=== PATIENT | male | born 1970 | race Hispanic/Latino ===

== ENCOUNTER 2017-09-21 15:35 | Emergency (ER) | payer BC ==
[2017-09-21 16:54] LABS: Absolute Lymphocytes (CBC) 3.5 K/uL (0.7-4.9); Absolute Monocytes 0.9 K/uL (0.1-1.3); Absolute Neutrophil 4.4 K/uL (1.8-8.0); Basophils % 0.7 % (0-1.3); Eosinophils % 2.9 % (0-4.4); Hematocrit 42.1 % (39.6-49.0); Lymphocytes % 38.5 % (15.3-44.8); MCH 25.7 pg (27.0-35.0); MCV 77.6 fL (80-100); MPV 9.2 fL (7.6-11.3); Monocytes % 10.3 % (3.3-12.3); RBC Red Blood Cell Count 5.42 M/uL (4.33-5.43)
[2017-09-21 17:05] LABS: Albumin 4.1 g/dL (3.2-5.5); Bilirubin Direct 0.2 mg/dL (0-0.2); Bilirubin Total 0.5 mg/dL (0.3-1.2); Protein, Total 7.9 g/dL (6.0-8.3)
[2017-09-21] MEDS ORDERED: NA CHLORIDE 0.9% 1,000 ML ONE (17:08)
[2017-09-21] MEDS ORDERED: MORPHINE 4 MG/ML SYR ONE (17:09)
[2017-09-21] MEDS ORDERED: ONDANSETRON 4 MG/2 ML VIAL ONE (17:09)
[2017-09-21 17:15] LABS: Potassium 4.1 mEq/L (3.6-5.0)
--- NOTE | 2017-09-21 17:42 | RAD REPORT ---
EXAM DESCRIPTION: CT - Abdomen Pelvis W Contrast - 09/21/2017 5:27 pm CLINICAL HISTORY: Abdominal pain left-sided pain COMPARISON: none. TECHNIQUE: Computed axial tomography of the abdomen pelvis was obtained. 100 cc Isovue-300 was admin istered intravenously. Oral contrast was not requested which limits evaluation of bowel. All CT scans are performed using dose optimization technique as appropriate and may include automated exposure control or mA/KV adjustment according to patient size. FINDINGS: The liver has a diminished attenuation consistent with fatty infiltration. Spleen, pancreas, adrenal and kidneys appear unremarkable. Diverticula stem from the colon without evidence of diverticulitis. The appendix is normal. A right inguinal hernia contains fat. A tiny umbilical hernia seen IMPRESSION: Right inguinal hernia containing fat
[2017-09-21 17:44] LABS: Urine Blood NEGATIVE (NEG); Urine Glucose NEGATIVE (NEG); Urine Protein NEGATIVE (NEG); Urine Specific Gravity 1.015 (1.005-1.030); Urine pH 6.5 (5.0-7.0)
[2017-09-21 17:51] LABS: Urine Bacteria NONE SEEN /HPF (NONE SEEN); Urine Culture Reflex Order REFLEXED; Urine RBC <5 /HPF (NONE SEEN); Urine Trichomonas PRESENT (NONE SEEN)
--- NOTE | 2017-09-21 18:30 | EDPHYS ---
Physician Documentation [facility] Name: Nael Perez Age: 46 yrs Sex: Male : 1970 Arrival Date: 09/21/2017 Time: 15:44 Bed 25 Private MD: ED Physician Orlin Dougherty HPI: 09/21 17:13 This 46 yrs old Male presents to ER via Ambulatory with complaints of kb Abdominal Pain. 17:13 The patient presents with abdominal pain left lateral abd. Onset: The symptoms/episode kb began/occurred this morning. The symptoms do not radiate. Associated signs and symptoms: none. The symptoms are described as constant. Modifying factors: The symptoms are alleviated by nothing, the symptoms are aggravated by pressure. Severity of pain: At its worst the pain was moderate in the emergency department the pain is unchanged. The patient has not experienced similar symptoms in the past. The patient has not recently seen a physician. Historical: - Allergies: 16:01 PENICILLINS; ch - Home Meds: 16:01 None [Active]; ch - PMHx: 16:01 None; ch - PSHx: 16:01 None; ch - Immunization history:: Adult Immunizations up to date. - Social history:: Smoking status: Patient/guardian denies using tobacco. ROS: 17:17 Constitutional: Negative for fever, chills, and weight loss, Cardiovascular: Negative kb for chest pain, palpitations, and edema, Respiratory: Negative for shortness of breath, cough, wheezing, and pleuritic chest pain, Back: Negative for injury and pain, : Negative for injury, bleeding, discharge, and swelling, MS/Extremity: Negative for injury and deformity, Skin: Negative for injury, rash, and discoloration, Neuro: Negative for headache, weakness, numbness, tingling, and seizure. 17:17 Abdomen/GI: Positive for abdominal pain, Negative for nausea, vomiting, and diarrhea, constipation, abdominal cramps, abdominal distension, anorexia. Exam: 17:17 Constitutional: This is a well developed, well nourished patient who is awake, alert, kb and in no acute distress. Head/Face: Normocephalic, atraumatic. Chest/axilla: Normal chest wall appearance and motion. Nontender with no deformity. No lesions are appreciated. Cardiovascular: Regular rate and rhythm with a normal S1 and S2. No gallops, murmurs, or rubs. Normal PMI, no JVD. No pulse deficits. Respiratory: Lungs have equal breath sounds bilaterally, clear to auscultation and percussion. No rales, rhonchi or wheezes noted. No increased work of breathing, no retractions or nasal flaring. Back: No spinal tenderness. No costovertebral tenderness. Full range of motion. Skin: Warm, dry with normal turgor. Normal color with no rashes, no lesions, and no evidence of cellulitis. MS/ Extremity: Pulses equal, no cyanosis. Neurovascular intact. Full, normal range of motion. Neuro: Awake and alert, GCS 15, oriented to person, place, time, and situation. Cranial nerves II-XII grossly intact. Motor strength 5/5 in all extremities. Sensory grossly intact. Cerebellar exam normal. Normal gait. 17:17 Abdomen/GI: Inspection: abdomen appears normal, Bowel sounds: normal, in all quadrants, Palpation: moderate abdominal tenderness, in the anterior aspect of left lateral abdomen. Vital Signs: 16:01 BP 137 / 91; Pulse 75; Resp 18; Temp 99.9; Pulse Ox 99% on R/A; Weight 95.25 kg; Height ch 5 ft. 6 in. (167.64 cm); Pain 9/10; 17:30 BP 132 / 70; Pulse 75; Resp 17; Pulse Ox 99% on R/A; kr2 18:45 BP 138 / 74; Pulse 78; Resp 17; Pulse Ox 99% on R/A; kr2 19:15 BP 138 / 70; Pulse 78; Resp 16; Pulse Ox 100% on R/A; kr2 16:01 Body Mass Index 33.89 (95.25 kg, 167.64 cm) MDM: 16:05 Patient medically screened. kb 17:17 Data reviewed: vital signs, nurses notes. Data interpreted: Pulse oximetry: on room air kb is 99 %. Interpretation: normal. 18:28 Counseling: I had a detailed discussion with the patient and/or guardian regarding: the kb historical points, exam findings, and any diagnostic results supporting the discharge/admit diagnosis, lab results, radiology results, the need for outpatient follow up, a family practitioner, to return to the emergency department if symptoms worsen or persist or if there are any questions or concerns that arise at home. 09/21 16:12 Order name: Amylase, Serum; Complete Time: 17:18 kb 09/21 16:12 Order name: Basic Metabolic Panel; Complete Time: 17:18 kb 09/21 16:12 Order name: CBC with Diff; Complete Time: 17:03 kb 09/21 16:12 Order name: Hepatic Function; Complete Time: 17:18 kb 09/21 16:12 Order name: Lipase; Complete Time: 17:18 kb 09/21 16:12 Order name: Urine Microscopic Only; Complete Time: 17:52 kb 09/21 17:03 Order name: CT Abd/Pelvis - W/Contrast; Complete Time: 17:49 kb 09/21 17:37 Order name: Urine Dipstick--Ancillary (enter results); Complete Time: 17:49 bd 09/21 17:53 Order name: Urine Culture EDMS 09/21 16:12 Order name: IV Saline Lock; Complete Time: 16:45 kb 09/21 16:12 Order name: Labs collected and sent; Complete Time: 16:45 kb 09/21 16:12 Order name: Urine Dipstick-Ancillary (obtain specimen); Complete Time: 18:45 kb Administered Medications: 17:21 Drug: NS 0.9% 1000 ml Route: IV; Rate: 1000 ml; Site: right antecubital; kr2 18:42 Follow up: Response: No adverse reaction; IV Status: Completed infusion kr2 17:21 Drug: Zofran 4 mg Route: IVP; Site: right antecubital; kr2 18:42 Follow up: Response: No adverse reaction kr2 17:21 Drug: morphine 4 mg Route: IVP; Site: right antecubital; kr2 18:00 Follow up: Response: No adverse reaction kr2 18:29 CANCELLED (Duplicate Order): Flagyl 500 mg PO once kb 18:41 Drug: Flagyl 2 grams Route: PO; kr2 18:43 Follow up: Response: Medication administered at discharge. kr2 Disposition: 22:36 Co-signature as Attending Physician, Orlin Dougherty MD. kdr Disposition: 09/21/17 18:29 Discharged to Home. Impression: Trichomoniasis. - Condition is Stable. - Discharge Instructions: Trichomoniasis. - Medication Reconciliation Form, Thank You Letter, Antibiotic Education, Prescription Opioid Use form. - Follow up: Emergency Department; When: As needed; Reason: Worsening of condition. Follow up: Private Physician; When: 2 - 3 days; Reason: Recheck today's complaints, Continuance of care, Re-evaluation by your physician. Signatures: Dispatcher [employer] EDAnupama Mina, BROODMARE FOREMAN-C BROODMARE FOREMAN-Eneida Atkinson, RN RN Orlin Dougherty MD MD [facility] Maria De Jesus Sandoval RN RN kr2 Corrections: (The following items were deleted from the chart) 18:29 18:28 Flagyl 500 mg PO once ordered. kb kb 19:45 18:29 09/21/2017 18:29 Discharged to Home. Impression: Trichomoniasis. Condition is kr2 Stable. Forms are Medication Reconciliation Form, Thank You Letter, Antibiotic Education, Prescription Opioid Use. Follow up: Emergency Department; When: As needed; Reason: Worsening of condition. Follow up: Private Physician; When: 2 - 3 days; Reason: Recheck today's complaints, Continuance of care, Re-evaluation by your physician. kb
--- NOTE | 2017-09-21 18:30 | ER ---
Nurse's Notes [facility] Name: Nael Perez Age: 46 yrs Sex: Male : 1970 Arrival Date: 09/21/2017 Time: 15:44 Bed 25 Private MD: Diagnosis: Trichomoniasis Presentation: 09/21 16:00 Presenting complaint: states: pt c/o pain to L side of abdomen started this morning. states it feels like a stabbing or poping pain. Transition of care: patient was not received from another setting of care. Onset of symptoms was September 21, 2017 at 07:00. Initial Sepsis Screen: Does the patient meet any 2 criteria? No. Patient's initial sepsis screen is negative. Does the patient have a suspected source of infection? No. Patient's initial sepsis screen is negative. Care prior to arrival: None. 16:00 Method Of Arrival: Ambulatory 16:00 Acuity: DARIEN 3 Triage Assessment: 16:01 General: Appears in no apparent distress. uncomfortable, Behavior is cooperative, ch appropriate for age. Pain: Complains of pain in anterior aspect of left lateral abdomen and posterior aspect of left lateral abdomen Pain currently is 8 out of 10 on a pain scale. GI: Abdomen is round obese. Historical: - Allergies: 16:01 PENICILLINS; ch - Home Meds: 16:01 None [Active]; ch - PMHx: 16:01 None; ch - PSHx: 16:01 None; ch - Immunization history:: Adult Immunizations up to date. - Social history:: Smoking status: Patient/guardian denies using tobacco. Screenin:10 Abuse screen: Denies threats or abuse. Denies injuries from another. Nutritional kr2 screening: No deficits noted. Tuberculosis screening: No symptoms or risk factors identified. Fall Risk None identified. Assessment: 16:10 General: Appears in no apparent distress. uncomfortable, well groomed, well developed, kr2 well nourished, Behavior is cooperative, anxious, restless. Pain: Complains of pain in posterior aspect of left lateral abdomen and anterior aspect of left lateral abdomen Pain radiates to abdomen Pain currently is 10 out of 10 on a pain scale. Quality of pain is described as sharp, shooting, Is continuous, Alleviated by rest, Aggravated by coughing. Neuro: Level of Consciousness is awake, alert, obeys commands, Oriented to person, place, time, situation, Appropriate for age. Cardiovascular: Capillary refill < 3 seconds in bilateral fingers Patient's skin is warm and dry. Respiratory: Airway is patent Respiratory effort is even, unlabored, Respiratory pattern is regular, symmetrical. GI: Bowel sounds present X 4 quads. Abd is soft X 4 quads Abdomen is tender to palpation in anterior aspect of left lateral abdomen, posterior aspect of left lateral abdomen, left upper quadrant and left lower quadrant Reports nausea. : No signs and/or symptoms were reported regarding the genitourinary system. Urine is clear. EENT: Oral mucosa is moist. Derm: Skin is intact, is healthy with good turgor, Skin is pink, warm \T\ dry. Musculoskeletal: Circulation, motion, and sensation intact. 17:15 Reassessment: Patient appears in no apparent distress at this time. Patient and/or kr2 family updated on plan of care and expected duration. Pain level reassessed. Patient is alert, oriented x 3, equal unlabored respirations, skin warm/dry/pink. Patient denies pain at this time. 18:30 Reassessment: Patient appears in no apparent distress at this time. Patient and/or kr2 family updated on plan of care and expected duration. Pain level reassessed. Patient is alert, oriented x 3, equal unlabored respirations, skin warm/dry/pink. Patient denies pain at this time. 19:30 Reassessment: Patient appears in no apparent distress at this time. Patient and/or kr2 family updated on plan of care and expected duration. Pain level reassessed. Patient is alert, oriented x 3, equal unlabored respirations, skin warm/dry/pink. Patient denies pain at this time. Vital Signs: 16:01 BP 137 / 91; Pulse 75; Resp 18; Temp 99.9; Pulse Ox 99% on R/A; Weight 95.25 kg; Height ch 5 ft. 6 in. (167.64 cm); Pain 9/10; 17:30 BP 132 / 70; Pulse 75; Resp 17; Pulse Ox 99% on R/A; kr2 18:45 BP 138 / 74; Pulse 78; Resp 17; Pulse Ox 99% on R/A; kr2 19:15 BP 138 / 70; Pulse 78; Resp 16; Pulse Ox 100% on R/A; kr2 16:01 Body Mass Index 33.89 (95.25 kg, 167.64 cm) ED Course: 15:44 Patient arrived in ED. sb2 16:01 Triage completed. 16:01 Arm band placed on left wrist. Patient placed in an exam room, on a stretcher. 16:05 Anupama Lemus FNP-C is [facility]. kb 16:05 Orlin Dougherty MD is Attending Physician. kb 16:10 Patient has correct armband on for positive identification. Bed in low position. Call kr2 light in reach. Side rails up X2. Adult w/ patient. Pulse ox on. NIBP on. Door closed. Warm blanket given. Head of bed elevated. 16:30 Inserted saline lock: 20 gauge in right antecubital area, using aseptic technique. kr2 ,using aseptic technique. performed by charge nurse Blood collected. 16:45 Maria De Jesus Sandoval RN is Primary Nurse. kr2 17:26 CT completed. Patient tolerated procedure well. Patient moved to CT via wheelchair. vm2 Patient moved back from CT. 17:27 CT Abd/Pelvis - W/Contrast In Process Unspecified. EDMS 19:30 No provider procedures requiring assistance completed. IV discontinued, intact, kr2 bleeding controlled, No redness/swelling at site. Pressure dressing applied. Administered Medications: 17:21 Drug: NS 0.9% 1000 ml Route: IV; Rate: 1000 ml; Site: right antecubital; kr2 18:42 Follow up: Response: No adverse reaction; IV Status: Completed infusion kr2 17:21 Drug: Zofran 4 mg Route: IVP; Site: right antecubital; kr2 18:42 Follow up: Response: No adverse reaction kr2 17:21 Drug: morphine 4 mg Route: IVP; Site: right antecubital; kr2 18:00 Follow up: Response: No adverse reaction kr2 18:29 CANCELLED (Duplicate Order): Flagyl 500 mg PO once kb 18:41 Drug: Flagyl 2 grams Route: PO; kr2 18:43 Follow up: Response: Medication administered at discharge. kr2 Outcome: 18:29 Discharge ordered by . kb 19:45 Patient left the ED. kr2 23:58 Discharged to home ambulatory, with family. kr2 23:58 Condition: good 23:58 Discharge instructions given to patient, family, Instructed on discharge instructions, follow up and referral plans. Demonstrated understanding of instructions, follow-up care. Signatures: Dispatcher [employer] Anupama Kincaid, EVELINE JUAN-Eneida Atkinson, RN Marguerite Barrios ch 2 Maria De Jesus Sandoval RN RN kr2 Hilda Pittman 2
[2017-09-21] MEDS ORDERED: metroNIDAZOLE 500 MG TABLET ONE ×2 (18:38→18:40)
== END 2017-09-21 19:45 | disposition home or self-care (01) ==
LOC: ER 15:35
DX: A59.9 Trichomoniasis, unspecified (principal); Z88.0 Allergy status to penicillin
CPT/HCPCS: 36415; 74177; 80048; 80076; 81003; 81015; 82150; 83690; 85025; 87086; 87088; 96361; 96374; 96375; 99284; J2405; J7030; Q9967

== ENCOUNTER 2023-03-24 16:33 | Emergency (ER) | payer OTHER, SELFPAY ==
--- OUTSIDE RECORDS SUMMARY | 2023-03-24 16:37 | XMS REPORT | Continuity of Care Document ---
:1970 Author Organization [facility] t Address [address] [place] [address] Care Team Providers Name Role Phone Pcp, Patient Does Not Have A Primary Care Physician +[id number] Doctor Unassigned, [place] Attending Clinician Unavailable Lab, Adc Fam Pob I Attending Clinician Unavailable Ashley TRAILER BODY ASSEMBLERCurt Attending Clinician CURT HERNANDEZ Attending Clinician Unavailable Payers Payer Name Policy Type Policy Number Effective Date Expiration Date S ource Problems Condition Condition Condition Status Onset Resolution Last Treating Co mments Source Name Details Category Date Date Treatment Clinician Date Epistaxis Epistaxis Disease Active Uni vers 12-09 ity of 00:00: [place] 00 [facility] Allergic Allergic Problem Active Commo n rhinitis, rhinitis, Spir it unspecifie unspecifie - [facility] Hypertensi Hypertensi Problem Active C ommon on, on, Spirit unspecifie unspecifie - [facility] d type d type [facility] Erectile Erectile Problem Active Commo n dysfunctio dysfunctio Sp hillary n n - [facility] Allergies, Adverse Reactions, Alerts Allergy Allergy Status Severity Reaction(s) Onset Inactive Treating Comm ents Source Name Type Date Date Clinician PENICILL Drug Active Swelling Univer s INS Class 12-09 ity of 00:00: [place] 00 [facility] Penicill Propensi Active Swelling Univ ers ins ty to 12-09 ity of adverse 00:00: [place] reaction 00 Medical s Branch Penicill Propensi Active Swelling Univ ers ins ty to 12-09 ity of adverse 00:00: [place] reaction 00 Medical s Branch penicill Adverse Active Info Not Commo n in Reaction Available Spiri t - [facility] Social History Social Habit Start Date Stop Date Quantity Comments Source Sexual orientation Univer sity [facility] Exposure to 2019-10-27 2019-11-26 Yes [facility] SARS-CoV-2 (event) 00:00:00 09:32:00 [facility] Alcohol intake 2016-12-22 2016-12-22 Current University of 00:00:00 00:00:00 non-drinker of [facility] [place] alcohol [place] (finding) History of Social 2016-12-09 2016-12-09 Univers ity of function 00:00:00 00:00:00 [facility] Sex Ass[birth year] At [birth year] Universit y of 00:00:00 00:00:00 [facility] Smoking Status Start Date Stop Date Source Never smoked tobacco [facility] Medications Ordered Filled Start Stop Current Ordering Indication Dosage Frequency Signature Comments Components Source Medication Medication Date Date Medication? Clinician (SIG) Name Name Losartan Losartan Yes Roseline 1 tablet Common Potassium Potassium 7-26 Mill[place] for high Spirit 00:00: blood - [facility] 00 pressure [facility] azithromyci Yes 250mg Take 1 Uni vers n 7-30 tablet by ity of (ZITHROMAX 00:00: mouth [place] Z-NOEMY) 250 00 SEE-INSTRU Med ical mg tablet CTIONS. Branch Take 500 mg day 1, then 250 mg days 2 to 5. acetaminoph Yes 1{tbl} Take 1 Un sharon en-codeine 7-30 tablet by ity of 300-30 mg 00:00: mouth [place] tablet 00 every 6 Medical (six) Branch hours as needed (moderate- severe coughing). azithromyci Yes 250mg Take 1 Uni vers n 7-30 tablet by ity of (ZITHROMAX 00:00: mouth [place] Z-NOEMY) 250 00 SEE-INSTRU Med ical mg tablet CTIONS. Branch Take 500 mg day 1, then 250 mg days 2 to 5. acetaminoph Yes 1{tbl} Take 1 Un sharon en-codeine 7-30 tablet by ity of 300-30 mg 00:00: mouth [place] tablet 00 every 6 Medical (six) Branch hours as needed (moderate- severe coughing). proMETHazin 2017-0 Yes 25mg Take 1 Univ ers e 25 mg 7-27 tablet by ity of tablet 00:00: mouth [place] 00 every 6 Medical (six) Branch hours as needed for Nausea and Vomiting (N/V). traMADOL 2017-0 Yes 50mg Take 1 Univers (ULTRAM) 50 7-27 tablet by ity of mg tablet 00:00: mouth [place] 00 every 6 Medical (six) Branch hours as needed for Pain (scale 7-10). proMETHazin 2017-0 Yes 25mg Take 1 Univ ers e 25 mg 7-27 tablet by ity of tablet 00:00: mouth [place] 00 every 6 Medical (six) Branch hours as needed for Nausea and Vomiting (N/V). traMADOL 2017-0 Yes 50mg Take 1 Univers (ULTRAM) 50 7-27 tablet by ity of mg tablet 00:00: mouth [place] 00 every 6 Medical (six) Branch hours as needed for Pain (scale 7-10). Procedures This patient has no known procedures. Encounters Start End Encounter Admission Attending Care Care Encounter Source Date/Time Date/Time Type Type Clinicians Facility Department ID 2019-11-30 2019-11-30 Patient Doctor [facility] [id number] Univers 00:00:00 00:00:00 Secure Msg Unassigned, [facility] [id number] ity of [place] [facility] [id number] Jonh as MATERNAL [id number] Med ical & CHILD 107 [facility] 2019-11-26 2019-11-26 Laboratory Lab, Adc Fam Pob I [facility] [id number] Univers 09:22:12 09:42:12 Only [facility] [id number] ity of [place] [id number] Jonh as Professio [phone] Ca dical nal [address] 2019-11-26 2019-11-26 Outpatient R [facility] [id number] Univers 09:00:00 09:00:00 [id number] ity of [facility] 2019-11-26 2019-11-26 Outpatient Pauline HERNANDEZ [facility] [id number] Univers 09:00:00 09:00:00 CURT liao [facility] 2018-01-11 2018-01-11 Out[facility] [id number] Common 10:24:00 10:24:[address] [facility] 2018-01-09 2018-01-09 Out[facility] [id number] Common 14:48:00 14:48:[address] [facility] 2017-12-12 2017-12-12 Outpatient [facility] [id number] Common 17:46:00 17:46:[address] [facility] 2017-12-08 2017-12-08 Outpatient [facility] [id number] Common 19:04:00 19:04:[address] [facility] 2017-12-08 2017-12-08 Outpatient [facility] [id number] Common 09:30:00 09:30:[address] [facility] Results This patient has no known results.
[2023-03-24 18:58] LABS: Absolute Lymphocytes (CBC) 2.7 K/uL (0.7-4.9); Hematocrit 41.5 % (39.6-49.0); Lymphocytes % 36.5 % (15.3-44.8); MCV 79.4 fL (80-100); MPV 8.9 fL (7.6-11.3); Platelets 167 thou/uL (152-406); RBC Red Blood Cell Count 5.22 M/uL (4.33-5.43); Specific Gravity > 1.030 (1.005-1.030); Urine Bacteria <20 /HPF (<20); Urine Bilirubin NEGATIVE (Negative); Urine Blood Negative (Negative); Urine Clarity Clear (Clear); Urine Color Light-Yellow (Yellow); Urine Glucose 4+ (Over) (Negative); Urine Mucus Slight /HPF (None Seen); Urine Protein TRACE (Negative); Urine RBC <5 /HPF (None Seen); Urine Urobilinogen 1+ (Normal)
[2023-03-24 19:02] LABS: Protime INR 0.95
[2023-03-24 19:19] LABS: Potassium 3.7 mEq/L (3.5-5.1)
--- NOTE | 2023-03-24 19:41 | RAD REPORT ---
EXAM DESCRIPTION: CT - Head C Spine Cap W Joey - 03/24/2023 6:48 pm CLINICAL HISTORY: TRAUMA COMPARISON: No comparisons TECHNIQUE: Head and cervical spine CT images were obtained without IV contrast. Chest, abdomen, and pelvis CT images were obtained following intravenous administration of 90 mL Isovue-300. Multiplanar reformats were generated and reviewed. All CT scans are performed using dose optimization technique as appropriate and may include automated exposure control or mA/KV adjustment according to patient size. FINDINGS: CT HEAD: No intracranial hemorrhage, mass effect, or edema. No evidence of acute territorial infarct. No midli ne shift or abnormal fluid collection. The ventricles are normal in caliber and configuration for age . Basal cisterns are patent. Mastoid aircells and paranasal sinuses are clear. No acute skull fractur e. CT CERVICAL SPINE: No acute cervical spine fracture or subluxation. Vertebral body heights are well maintained. Facet cecilio ints are normal in alignment. No hyperattenuating canal hematoma. Prevertebral and paraspinous soft t issues are unremarkable. CT CHEST: Rounded pleural-based medial right lower lobe opacity with central lucency. No pneumothorax, pulmonar y contusion or pleural fluid collection. No mediastinal hematoma and the aorta and pulmonary arteries are unremarkable. No chest will mass or abnormal axillary finding. No displaced rib fracture or othe r significant bony finding. CT ABDOMEN/ PELVIS: No evidence of traumatic injury to solid abdominal viscera. Gallbladder and biliary tree are unremark able. No bowel injury or significant finding. No free air, free fluid or abnormal fat stranding. Righ t inguinal hernia containing fat. Urinary bladder is decompressed limiting evaluation. No significant bony finding. IMPRESSION: Small rounded pleural-based right lower lobe medial airspace opacity with central lucenc y, may reflect a small focus of aspiration No evidence of an acute traumatic abnormality.
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
[2023-03-24] MEDS ORDERED: FENTANYL CITR 100 MCG/2 ML ONE (20:39)
[2023-03-24] MEDS ORDERED: KETOROLAC 30 MG/ML INJ ONE (20:42)
[2023-03-24 20:55] VITALS: BP 146/96; TEMP 98.2; O2SAT 100
== END 2023-03-24 20:50 | disposition home or self-care (01) ==
LOC: ER 16:33
DX: M54.2 Cervicalgia (principal); M54.9 Dorsalgia, unspecified; V44.5XXA Car driver injured in collision with heavy transport vehicle or bus in traffic accident, initial encounter; Z88.0 Allergy status to penicillin
CPT/HCPCS: 85025; 81001; 80048; 36415; 85610; 82565; 70450; 72125; 71260; 74177; 96375; 96374; 99284; Q9967; J3010